=== PATIENT | male | born 1975 | race Caucasian/White ===

== ENCOUNTER 2018-03-29 08:02 | Emergency (ER) | payer OTHER ==
[~2018-03-29] VITALS: Ht 175.3 cm; Wt 80.7 kg
[2018-03-29] MEDS ORDERED: HUMULIN R100 UNIT/1 INJ (08:16)
[2018-03-29] MEDS ORDERED: LIPITOR10 MG (08:17)
[2018-03-29] MEDS ORDERED: ASPIR 8181 MG PO (08:17)
[2018-03-29] MEDS ORDERED: LANTUS100 UNITS/ SUB-Q (08:17)
[2018-03-29] MEDS ORDERED: FUROSEMIDE40 MG PO (08:18)
[2018-03-29] MEDS ORDERED: LISINOPRIL10 MG PO (08:18)
[2018-03-29] MEDS ORDERED: TOPROL XL25 MG PO (08:18)
== END 2018-03-29 10:40 | disposition home or self-care (01) ==
LOC: ED 08:02
DX: E11.649 Type 2 diabetes mellitus with hypoglycemia without coma (principal); I10 Essential (primary) hypertension; N19 Unspecified kidney failure; Z87.891 Personal history of nicotine dependence; Z79.4 Long term (current) use of insulin; Z79.82 Long term (current) use of aspirin; Z79.899 Other long term (current) drug therapy
CPT/HCPCS: 99283